=== PATIENT | male | born 1935 | race Caucasian/White ===

== ENCOUNTER 2016-08-11 10:10 | Emergency (ER) | payer MEDICARE, OTHER ==
[~2016-08-11 10:10] MED LIST: Sodium Chloride 0.9% 1,000 ML BAG ONE
[2016-08-11 11:06] LABS: ALT (SGPT) 8 U/L (8-55); AST (SGOT) 14 U/L (5-34); Albumin 3.5 g/dL (3.4-4.8); Alkaline Phosphatase 94 U/L (40-150); Anion Gap 18 mmol/L (10-20); BUN (Urea Nitrogen) 27 mg/dL (8.4-25.7); Bilirubin, Total 1.5 mg/dL (0.2-1.2); Calc. Creatinine Clearance 0 mL/min (70-130); Calcium 8.9 mg/dL (7.8-10.44); Carbon Dioxide 16 mmol/L (23-31); Chloride 104 mmol/L (98-107); Estimated GFR-MDRD 59; Globulin 2.2 g/dL (2.4-3.5); Glucose 135 mg/dL (83-110); Potassium 4.2 mmol/L (3.5-5.1); Protein, Total 5.7 g/dL (5.8-8.1); Sodium 134 mmol/L (136-145)
[2016-08-11 11:07] LABS: CKMB 0.7 ng/mL (0-6.6); Troponin I 0.014 ng/mL (< 0.028)
[2016-08-11 11:23] LABS: Anisocytosis MODERATE=16-30 cells (100X) (0-5/hpf); Band 12 % (5-11); Hemoglobin 6.3 g/dL (14.0-18.0); Hypochromia MODERATE=16-30 cells (100X) (0-5/hpf); Lymphocytes 13 % (21-51); MDiff Complete? YES; Mean Corpuscular HGB CONC 36.7 g/dL (32.0-36.0); Mean Corpuscular Hemoglobin 30.9 pg (27.0-31.0); Mean Corpuscular Volume 84.3 fl (80.0-94.0); Mean Platelet Volume 6.8 fL (7.4-10.4); Microcytosis MODERATE=15-30 cells (100X) (0-5/hpf); Monocytes 7 % (0-10); Myelocyte 4 % (0-0); Neutrophil 64 % (42-75); Platelet Count 221 thou/uL (130-400); RBC Distribution Width 19.4 % (11.5-14.5); Red Blood Cell (RBC) Count 2.04 mill/uL (4.70-6.10); White Blood Cell (WBC) Count 3.9 thou/uL (4.8-10.8)
--- NOTE | 2016-08-11 11:31 | RAD ---
PORTABLE CHEST 1 VIEW: Date: 08/11/16 Time: 1038 hours HISTORY: Hypotension. FINDINGS: The heart size is normal. The lungs are well expanded without focal areas of consolidation, pneumoth orax, or pleural effusions. IMPRESSION: No radiographic evidence of acute cardiopulmonary process. POS: [facility]
[2016-08-11 12:55] LABS: Clarity Hazy (Clear)
[2016-08-11 12:56] LABS: Bilirubin Negative (Negative); Blood, Urine Negative (Negative); Glucose, Urine (Dipstick) Negative (Negative); Icto Negative (Negative); Leukocyte Negative (Negative); Nitrite Negative (Negative); Protein, Urine (Dipstick) Negative (Neg-Trace)
== END 2016-08-11 11:50 | disposition short-term general hospital (02) ==
LOC: MADERS 10:10
DX: I48.91 Unspecified atrial fibrillation (principal); D58.9 Hereditary hemolytic anemia, unspecified; C91.10 Chronic lymphocytic leukemia of B-cell type not having achieved remission; C4A.9 Merkel cell carcinoma, unspecified; T45.1X5A Adverse effect of antineoplastic and immunosuppressive drugs, initial encounter; Z79.899 Other long term (current) drug therapy
CPT/HCPCS: 36415; 71010; 80053; 81003; 82553; 83880; 84484; 85025; 86850; 86870; 86900; 86901; 87040; 93005; 96360; J7050

== ENCOUNTER 2016-10-06 09:19 | Outpatient (CLI) | payer MEDICARE, OTHER ==
[2016-10-06 10:09] LABS: #Lymphocytes 0.8 thou/uL (1.20-3.40); #Monocytes 0.3 thou/uL (0.11-0.59); #Neutrophils 5.1 thou/uL (1.40-6.50); %Basophils 0.8 % (0.0-1.0); %Eosinophils 0.4 % (0.0-10.0); %Lymphocytes 12.7 % (21.0-51.0); %Monocytes 4.5 % (0.0-10.0); %Neutrophils 81.6 % (42.0-75.0); Mean Corpuscular HGB CONC 33.2 g/dL (32.0-36.0); Mean Corpuscular Hemoglobin 31.9 pg (27.0-31.0); Mean Platelet Volume 6.3 fL (7.4-10.4); Platelet Count 180 thou/uL (130-400); RBC Distribution Width 18.4 % (11.5-14.5); Red Blood Cell (RBC) Count 3.46 mill/uL (4.70-6.10); White Blood Cell (WBC) Count 6.3 thou/uL (4.8-10.8)
== END 2016-10-06 09:20 | disposition home or self-care (01) ==
LOC: MADLAB 09:19
PROVIDERS: ATTEND Family Medicine
DX: C91.10 Chronic lymphocytic leukemia of B-cell type not having achieved remission (principal)
CPT/HCPCS: 36415; 85025

== ENCOUNTER 2017-09-15 13:05 | Outpatient (CLI) | payer MEDICARE, OTHER ==
--- NOTE | 2017-09-15 13:31 | RAD ---
RIGHT KNEE 3 VIEWS: Date: 09/15/17 HISTORY: Right knee pain. COMPARISON: 01/23/15. FINDINGS: Moderate joint space narrowing medial compartment. Moderate tricompartmental osteophytosis. Small imelda unt of fluid distends the suprapatellar bursa on the lateral view. IMPRESSION: Small amount of joint fluid likely reflects an effusion related to the moderate osteoarthritic change s including joint space narrowing at the medial compartment. POS: [facility]
--- NOTE | 2017-09-15 13:33 | RAD ---
LEFT KNEE 3 VIEWS: Date: 09/15/17 HISTORY: Knee pain. Arthritis. COMPARISON: 01/23/15. FINDINGS: Moderate joint space narrowing medial compartment with some remodeling of the articular surfaces. Mod erate tricompartmental osteophytosis. Small amount of fluid distends the suprapatellar bursa on the l ateral view. No acute fracture, dislocation, or aggressive osseous erosions. IMPRESSION: Small amount of joint fluid likely reflects an effusion to the moderate osteoarthritic changes, inclu ding joint space narrowing at the medial compartment. POS: [facility]
== END 2017-09-15 13:06 | disposition home or self-care (01) ==
LOC: MADRAD 13:05
PROVIDERS: ATTEND Orthopaedic Surgery
DX: M25.561 Pain in right knee (principal); M17.0 Bilateral primary osteoarthritis of knee

== ENCOUNTER 2019-07-01 19:46 | Emergency (ER) | payer MEDICARE, OTHER ==
[2019-07-01] MEDS ORDERED: Sodium Chloride 0.9% 1,000 ML ONE (20:02)
[2019-07-01] MEDS ORDERED: Prochlorperazine 10 MG/2 ML VIAL ONE (20:02)
[2019-07-01] MEDS ORDERED: Pantoprazole 40 MG VIAL ONE (20:03)
[2019-07-01 20:25] LABS: #Basophils 0.1 thou/uL (0.0-0.2); #Eosinphils 0.1 thou/uL (0.0-0.7); #Lymphocytes 2.3 thou/uL (1.20-3.40); #Monocytes 0.7 thou/uL (0.11-0.59); #Neutrophils 5.8 thou/uL (1.40-6.50); %Eosinophils 1.1 % (0.0-10.0); %Lymphocytes 25.2 % (21.0-51.0); %Monocytes 7.9 % (0.0-10.0); %Neutrophils 64.8 % (42.0-75.0); Hemoglobin 13.5 g/dL (14.0-18.0); Mean Corpuscular HGB CONC 31.6 g/dL (32.0-36.0); Mean Corpuscular Hemoglobin 26.8 pg (27.0-31.0); Mean Corpuscular Volume 84.6 fL (78.0-98.0); Mean Platelet Volume 8.4 fL (7.4-10.4); Platelet Count 205 thou/uL (130-400); RBC Distribution Width 16.1 % (11.5-14.5); Red Blood Cell (RBC) Count 5.05 mill/uL (4.70-6.10)
[2019-07-01 20:27] LABS: ALT (SGPT) 10 U/L (8-55); AST (SGOT) 14 U/L (5-34); Albumin 4.4 g/dL (3.4-4.8); Alkaline Phosphatase 99 U/L (40-110); Anion Gap 20 mmol/L (10-20); BUN (Urea Nitrogen) 32 mg/dL (8.4-25.7); Bilirubin, Total 1.1 mg/dL (0.2-1.2); Calc. Creatinine Clearance 0 mL/min (70-130); Calcium 9.9 mg/dL (7.8-10.44); Carbon Dioxide 18 mmol/L (23-31); Chloride 105 mmol/L (98-107); Estimated GFR-MDRD 50; Globulin 2.4 g/dL (2.4-3.5); Glucose 138 mg/dL (83-110); Lipase 30 U/L (8-78); Potassium 4.7 mmol/L (3.5-5.1); Protein, Total 6.8 g/dL (5.8-8.1); Sodium 138 mmol/L (136-145)
--- NOTE | 2019-07-01 20:51 | CT ---
CT ABDOMEN AND PELVIS WITHOUT CONTRAST: History: Epigastric pain. Recent lithotripsy. Comparison: 04-25-2019 FINDINGS: Large hiatal hernia. There is no hydroureteral nephrosis. Mild prominence of the left renal pelvis. A djacent scarring of the renal sinus fat. No nephroureterolithiasis. Mild thickening of the left renal pelvis. No dilated loops of large or small bowel. Cholelithiasis without evidence of acute cholecystitis. The appendix is visualized and is normal. The aortic contour is non-aneurysmal. A small right adrenal adenoma. Noncontrast evaluation of the spleen, pancreas, and liver are unremarkable. IMPRESSION: 1. No hydroureteronephrosis. 2. Minimal fullness left renal pelvis with some likely scar and left renal sinus fat, less likely tristan litis. Recommend correlation with urinalysis. 3. No nephroureterolithiasis. 4. Large hiatal hernia, same as the comparison exam. 5. Cholelithiasis without cholecystitis. 6. Unchanged right adrenal adenoma. POS: HOME
== END 2019-07-01 21:17 | disposition home or self-care (01) ==
LOC: MADERS 19:46
DX: K44.9 Diaphragmatic hernia without obstruction or gangrene (principal); Z79.899 Other long term (current) drug therapy
CPT/HCPCS: 74176; 80053; 83605; 83690; 84484; 85025; 93005; 96361; 96374; 96375; C9113; J0780; J7050

== ENCOUNTER 2022-05-06 16:32 | Emergency (ER) | payer MEDICARE, OTHER ==
[2022-05-06 16:46] LABS: #Basophils 0.1 thou/uL (0.0-0.2); #Eosinphils 0.1 thou/uL (0.0-0.7); #Lymphocytes 2.4 thou/uL (1.20-3.40); #Monocytes 0.6 thou/uL (0.11-0.59); #Neutrophils 5.1 thou/uL (1.40-6.50); %Eosinophils 1.2 % (0.0-10.0); %Lymphocytes 29.3 % (21.0-51.0); %Monocytes 7.2 % (0.0-10.0); %Neutrophils 61.4 % (42.0-75.0); Hemoglobin 15.6 g/dL (14.0-18.0); Mean Corpuscular Hemoglobin 28.5 pg (27.0-31.0); Mean Corpuscular Volume 86.5 fl (78.0-98.0); Mean Platelet Volume 10.1 fL (7.4-10.4); Platelet Count 158 10x3/uL (130-400); RBC Distribution Width 14.3 % (11.5-14.5); Red Blood Cell (RBC) Count 5.48 mill/uL (4.70-6.10); White Blood Cell (WBC) Count 8.3 10x3/uL (4.8-10.8)
[2022-05-06 17:06] LABS: ALT (SGPT) 13 U/L (8-55); AST (SGOT) 14 U/L (5-34); Albumin 4.4 g/dL (3.4-4.8); Alkaline Phosphatase 100 U/L (40-110); Anion Gap 17 mmol/L (10-20); BUN (Urea Nitrogen) 27 mg/dL (8.4-25.7); Bilirubin, Total 0.8 mg/dL (0.2-1.2); Calc. Creatinine Clearance 0 mL/min (70-130); Calcium 10.1 mg/dL (7.8-10.44); Carbon Dioxide 20 mmol/L (23-31); Chloride 105 mmol/L (98-107); Estimated GFR 55; Globulin 2.4 g/dL (2.4-3.5); Glucose 117 mg/dL (83-110); Magnesium 1.9 mg/dL (1.6-2.6); Potassium 4.5 mmol/L (3.5-5.1); Protein, Total 6.8 g/dL (5.8-8.1); Sodium 137 mmol/L (136-145)
[2022-05-06 17:07] LABS: Digoxin Less than 0.15 ng/mL (0.8-2.0)
== END 2022-05-06 19:57 | disposition home or self-care (01) ==
LOC: MADERS 16:32
DX: I48.20 Chronic atrial fibrillation, unspecified (principal); I10 Essential (primary) hypertension
CPT/HCPCS: 71045; 80053; 80162; 83735; 83880; 84484; 85025; 85379; 93005

== ENCOUNTER 2022-06-16 15:39 | Emergency (ER) | payer MEDICARE, OTHER ==
[2022-06-16 17:22] LABS: Band 15 % (5-11); Hemoglobin 13.7 g/dL (14.0-18.0); Lymphocytes 17 % (21-51); MDiff Complete? YES; Mean Corpuscular HGB CONC 34.1 g/dL (32.0-36.0); Mean Corpuscular Hemoglobin 28.7 pg (27.0-31.0); Mean Corpuscular Volume 84.1 fl (78.0-98.0); Mean Platelet Volume 9.4 fL (7.4-10.4); Monocytes 3 % (0-10); Neutrophil 65 % (42-75); Platelet Count 162 10x3/uL (130-400); Platelet Morphology Comment Appears Adequate; RBC Distribution Width 13.4 % (11.5-14.5); Red Blood Cell (RBC) Count 4.76 mill/uL (4.70-6.10); White Blood Cell (WBC) Count 7.8 10x3/uL (4.8-10.8)
[2022-06-16 17:23] LABS: ALT (SGPT) 16 U/L (8-55); AST (SGOT) 18 U/L (5-34); Albumin 3.7 g/dL (3.4-4.8); Alkaline Phosphatase 87 U/L (40-110); Anion Gap 15 mmol/L (10-20); BUN (Urea Nitrogen) 21 mg/dL (8.4-25.7); Calc. Creatinine Clearance 0 mL/min (70-130); Calcium 10.6 mg/dL (7.8-10.44); Carbon Dioxide 23 mmol/L (23-31); Chloride 99 mmol/L (98-107); Estimated GFR 64; Globulin 2.8 g/dL (2.4-3.5); Glucose 119 mg/dL (83-110); Magnesium 1.7 mg/dL (1.6-2.6); Potassium 4.7 mmol/L (3.5-5.1); Protein, Total 6.5 g/dL (5.8-8.1); Sodium 132 mmol/L (136-145)
[2022-06-16 17:24] LABS: Acetaminophen Less than 10.0 mcg/mL (10.0-30.0); Alcohol Less than 10 mg/dL (Less than 10); Salicylate Less than 8.0 mg/dL (15.0-30.0)
[2022-06-16 18:19] LABS: Amphetamine Not Detected (NotDetected); Barbiturates Screen Not Detected (NotDetected); Benzodiazepine Screen Not Detected (NotDetected); Cocaine Metabolite Screen Not Detected (NotDetected); Methadone Not Detected (NotDetected); Methamphetamine Not Detected (NotDetected); Opiate Screen Not Detected (NotDetected); Oxycodone Screen Not Detected (NotDetected); Phencyclidine (PCP) Not Detected (NotDetected); THC/Cannabinoid Screen Not Detected (NotDetected); Tricyclic Screen Not Detected (NotDetected)
== END 2022-06-16 20:14 | disposition home or self-care (01) ==
LOC: MADERS 15:39
DX: F41.9 Anxiety disorder, unspecified (principal); I10 Essential (primary) hypertension; Z79.899 Other long term (current) drug therapy
CPT/HCPCS: 36415; 80053; 80306; 80307; 83735; 85025; 93005